=== PATIENT | male | born 1955 ===

== ENCOUNTER → 2021-08-31 09:42 | Outpatient (BNVA) | payer MEDICARE, MEDICAID, SELFPAY | PROVIDERS: Visit Provider Psychiatry & Neurology Neurology | DX: G25.1 Drug-induced tremor (principal) | CPT/HCPCS: 99212 ==

== ENCOUNTER → 2022-03-05 09:47 | Outpatient (BNVA) | payer MEDICARE, OTHER, SELFPAY | PROVIDERS: Visit Provider Psychiatry & Neurology Neurology | DX: G25.1 Drug-induced tremor (principal); G47.8 Other sleep disorders | CPT/HCPCS: 99212 ==

== ENCOUNTER 2023-03-04 09:11 | Outpatient (AMB) | payer MEDICARE, MEDICAID, SELFPAY ==
--- NOTE | 2023-03-04 09:12 | A.OFFVIS_ITS ---
Intake Vital Signs 03/04/23 09:14 Height 5 ft 10.5 in Weight 129 lb BMI 18.2 BP 128/86 Blood Pressure Location Lt brachial Position Sitting Respiration 18 Pulse 86 Pulse Source Pulse Oximeter Pulse Oximetry (%) 98 Oxygen Delivery Method Room Air Intake Visit Reasons: I YEAR FOLLOW UP - Confirmed Intake Note: Pt presents to the office for a one year follow up for tremors. Pt reports his tremors have improved significantly since his last visit. He states if he wakes up in the middle of the night shaking, he takes one of them little pills and I wake up just fine in the morning . His main concern today is that he has been losing a lot of weight recently. He alleges to have lost 50 lbs in the last 2 months. Pt reports having a heart attack on weekend. Tooling Inspector Required: No Allergies methylprednisolone [From Medrol] Allergy (Mild, Verified 03/04/23 09:14) Unknown Medication List - Last Reconciled 03/04/23 by Yessenia Schuster MD albuterol sulfate 90 mcg/actuation 2 puffs inhalation Q4H PRN aspirin 81 mg PO DAILY atorvastatin 80 mg PO BEDTIME atorvastatin 80 mg PO DAILY benztropine 1 mg PO TID clopidogrel 75 mg PO DAILY clopidogrel 300 mg PO DAILY lithium carbonate ER 450 mg PO BID metoprolol succinate ER 25 mg PO DAILY nitroglycerin 0.4 mg sublingual Q5M PRN nutritional supplement-caloric (Benecalorie) kcal PO omeprazole 40 mg PO DAILY sennosides-docusate sodium 8.6-50 mg (Senna with Docusate Sodium) 1 tab-cap PO BEDTIME sildenafil (Viagra) 25 mg PO DAILY PRN tamsulosin 0.4 mg PO DAILY HPI HPI Comments History of Present Illness Details 67y/o male comes for follow up of tremor s. He is on cogentin 1mg bid and 1-2 tabs qhs and it is helping. His tremors are stable with increase in benztropine.He had atleast 10 falls last year. It is usually in the shower when he closes his eyes. He has someone who helps with cooking and house keeping. He had a [place] last year and had 2 stents and balloon angio. He follows up with [facility] Medical History (Updated 03/04/23 @ 09:44 by Yessenia Schuster MD) Colitis Myocardial infarction Sleep arousal disorder HTN (hypertension) Weight loss Drug-induced tremor [place] adverse reaction Depression Arthritis Surgical History History of heart artery stent History of back surgery Family History Mother Myocardial infarction Father Myocardial infarction Brother Myocardial infarction Sister Myocardial infarction Social History Alcohol intake: never Patient Tobacco Use Status: Former Tobacco user Quit Date: 1997 Physical Exam Vital Signs: Last Vital Signs Pulse 86 03/04/23 09:14 Resp 18 03/04/23 09:14 BP 128/86 03/04/23 09:14 Pulse Ox 98 03/04/23 09:14 Oxygen Delivery Method Room Air 03/04/23 09:14 BMI result Body Mass Index 18.2 Const Other: no tongue tremors no perioral movements General: cooperative, healthy appearing, comfortable and no acute distress Nutritional Appearance: underweight Orientation/consciousness: patient oriented x3 Neck Neck: Yes normal visual inspection and Yes full ROM Neuro Other: Very Mild lori postural and action tremors General: patient oriented x3, gait normal, tone normal, moves all extremities, no focal motor deficits and CN's II-XI intact bilaterally Deep tendon reflexes (DTR's): Right triceps reflex intensity grade: 2+, Left triceps reflex intensity grade: 2+, Rt Biceps (C5, C6): 2+, Left biceps reflex intensity grade: 2+, Right brachioradialis reflex intensity grade: 2+, Left brachioradialis reflex intensity grade: 2+, Right patellar reflex intensity grade: 2+ and Left patellar reflex intensity grade: 2+ Assessment & Plan Assessment & Plan (1) Drug-induced tremor: Code(s): G25.1 - Drug-induced tremor (2) Sleep arousal disorder: Code(s): G47.8 - Other sleep disorders Plan Continue benztropine 1mg bid and 2 tabs qhs . F/u cardiology F/u with psychiatry Coding Level of Care Code Est Pt Level 4 (99504) Diagnoses Drug-induced tremor G25.1 Sleep arousal disorder G47.8
[2023-03-04 09:14] VITALS: BP 128/86; PULSE 86; RESP 18; O2SAT 98; BMI 18.2
== END 2023-03-04 09:53 | disposition home or self-care (01) ==
PROVIDERS: Visit Provider Psychiatry & Neurology Neurology
DX: G25.1 Drug-induced tremor (principal); G47.8 Other sleep disorders
CPT/HCPCS: 99214

== ENCOUNTER → 2023-03-04 09:11 | Outpatient (BNVA) | payer MEDICARE, MEDICAID, SELFPAY | PROVIDERS: Visit Provider Psychiatry & Neurology Neurology | DX: G25.1 Drug-induced tremor (principal); G47.8 Other sleep disorders | CPT/HCPCS: 99212 ==

== ENCOUNTER 2023-09-02 08:53 | Outpatient (AMB) | payer MEDICARE, MEDICAID, SELFPAY ==
--- NOTE | 2023-09-02 08:55 | A.OFFVIS_ITS ---
Vital Signs 09/02/23 08:56 Height 5 ft 10.5 in Weight 154 lb 2 oz BMI 21.8 BP 118/76 Blood Pressure Location Rt brachial Position Sitting Respiration 16 Pulse 70 Pulse Source Pulse Oximeter Pulse Oximetry (%) 96 Oxygen Delivery Method Room Air Intake Visit Reasons: 6 mo f/u - Confirmed Intake Note: Pt presents for a 6 month follow up for tremors. Braker Passenger Train Required: No Allergies methylprednisolone [From Medrol] Allergy (Mild, Verified 09/02/23 08:56) Unknown Medication List - Last Reconciled 09/02/23 by Yessenia Schuster MD albuterol sulfate 90 mcg/actuation 2 puffs inhalation Q4H PRN aspirin 81 mg PO DAILY atorvastatin 80 mg PO BEDTIME atorvastatin 80 mg PO DAILY benztropine 1 mg PO TID clopidogrel 75 mg PO DAILY clopidogrel 300 mg PO DAILY escitalopram oxalate 20 mg PO DAILY lithium carbonate ER 450 mg PO BID metoprolol succinate ER 25 mg PO DAILY nitroglycerin 0.4 mg sublingual Q5M PRN nutritional supplement-caloric (Benecalorie) kcal PO omeprazole 40 mg PO DAILY quetiapine 25 mg PO DAILY sacubitril-valsartan 24-26 mg (Entresto) 1 tab PO BID sennosides-docusate sodium 8.6-50 mg (Senna with Docusate Sodium) 1 tab-cap PO BEDTIME sildenafil (Viagra) 25 mg PO DAILY PRN tamsulosin 0.4 mg PO DAILY HPI Comments Details: 67y/o male comes for follow up of tremors. He is on cogentin 1mg bid and 1-2 tabs qhs and it is helping. His tremors are stable with increase in benztropine.No recent falls in the past 3 months but prior to that he had falls- but he had GI issues and was not eating. He has someone who helps with cooking and house keeping. He had a [place] last year and had 2 stents and balloon angio. He follows up with [facility] Medical History Colitis Myocardial infarction Sleep arousal disorder HTN (hypertension) Weight loss Drug-induced tremor [place] adverse reaction Depression Arthritis Surgical History History of heart artery stent History of back surgery Family History Mother Myocardial infarction Father Myocardial infarction Brother Myocardial infarction Sister Myocardial infarction Social History Alcohol intake: never Patient Tobacco Use Status: Former Tobacco user Quit Date: 1997 Physical Exam Vital Signs: Last Vital Signs Pulse 70 09/02/23 08:56 Resp 16 09/02/23 08:56 BP 118/76 09/02/23 08:56 Pulse Ox 96 09/02/23 08:56 Oxygen Delivery Method Room Air 09/02/23 08:56 BMI result Body Mass Index 21.8 Const Other: no tongue tremors no perioral movements General: cooperative, healthy appearing, comfortable and no acute distress Nutritional Appearance: underweight Orientation/consciousness: patient oriented x3 Neck Neck: Yes normal visual inspection and Yes full ROM Neuro Other: Very Mild lori postural and action tremors General: patient oriented x3, gait normal, tone normal, moves all extremities, no focal motor deficits and CN's II-XI intact bilaterally Assessment & Plan Assessment & Plan (1) Drug-induced tremor: Code(s): G25.1 - Drug-induced tremor Category: Medical (2) Sleep arousal disorder: Code(s): G47.8 - Other sleep disorders Category: Medical Plan Continue benztropine 1mg tid. F/u cardiology F/u with psychiatry Coding Level of Care Code Est Pt Level 4 (47780) Diagnoses Drug-induced tremor G25.1 Sleep arousal disorder G47.8
[2023-09-02 08:56] VITALS: BP 118/76; PULSE 70; RESP 16; O2SAT 96; BMI 21.8
== END 2023-09-02 09:18 | disposition home or self-care (01) ==
PROVIDERS: Visit Provider Psychiatry & Neurology Neurology
DX: G25.1 Drug-induced tremor (principal); G47.8 Other sleep disorders
CPT/HCPCS: 99214

== ENCOUNTER → 2023-09-02 08:53 | Outpatient (BNVA) | payer MEDICARE, MEDICAID, SELFPAY | PROVIDERS: Visit Provider Psychiatry & Neurology Neurology | DX: G25.1 Drug-induced tremor (principal); G47.8 Other sleep disorders | CPT/HCPCS: 99212 ==

== ENCOUNTER 2024-09-02 08:46 | Outpatient (AMB) | payer OTHER, MEDICARE, MEDICAID, SELFPAY ==
--- NOTE | 2024-09-02 08:48 | MHC.OFFVIS ---
Vital Signs 09/02/24 08:49 Height 5 ft 10.5 in Weight 143 lb 8 oz BMI 20.3 BP 118/70 Blood Pressure Location Rt brachial Position Sitting Pulse 60 Pulse Source Pulse Oximeter Pulse Oximetry (%) 96 Oxygen Delivery Method Room Air Intake Visit Reasons: Follopw up-LVM TO R/S Intake Note: Patient presents for follow up tremors, Allergies methylprednisolone [From Medrol] Allergy (Mild, Verified 09/02/24 08:53) Unknown Medication List - Last Reconciled 09/02/24 by Yessenia Schuster MD albuterol sulfate 90 mcg/actuation 2 puffs inhalation Q4H PRN aspirin 81 mg PO DAILY atorvastatin 80 mg PO BEDTIME atorvastatin 80 mg PO DAILY benztropine 1 mg PO TID clopidogrel 75 mg PO DAILY clopidogrel 300 mg PO DAILY escitalopram oxalate 20 mg PO DAILY lithium carbonate ER 450 mg PO BID metoprolol succinate ER 25 mg PO DAILY nitroglycerin 0.4 mg sublingual Q5M PRN nutritional supplement-caloric (Benecalorie) kcal PO omeprazole 40 mg PO DAILY quetiapine 25 mg PO DAILY sacubitril-valsartan 24-26 mg (Entresto) 1 tab PO BID sennosides-docusate sodium 8.6-50 mg (Senna with Docusate Sodium) 1 tab-cap PO BEDTIME sildenafil (Viagra) 25 mg PO DAILY PRN tamsulosin 0.4 mg PO DAILY HPI Comments Details: 68y/o male comes for follow up of tremors. He is on cogentin 1mg tid and it is helping.He forgets his middle of day dose often His tremors are stable with increase in benztropine. He tripped on a rug and had a fall 2 mths ago l He has someone who helps with cooking and house keeping. He had a [place] last year and had 2 stents and balloon angio. He follows up with [facility] Medical History Colitis Myocardial infarction Sleep arousal disorder HTN (hypertension) Weight loss Drug-induced tremor [place] adverse reaction Depression Arthritis Surgical History History of heart artery stent History of back surgery Family History Mother Myocardial infarction Father Myocardial infarction Brother Myocardial infarction Sister Myocardial infarction Social History Alcohol intake: never Patient Tobacco Use Status: Former Tobacco user Physical Exam Vital Signs: Last Vital Signs Pulse 60 09/02/24 08:49 BP 118/70 09/02/24 08:49 Pulse Ox 96 09/02/24 08:49 Oxygen Delivery Method Room Air 09/02/24 08:49 BMI result Body Mass Index 20.3 Const Other: no tongue tremors no perioral movements General: cooperative, healthy appearing, comfortable and no acute distress Nutritional Appearance: underweight Orientation/consciousness: patient oriented x3 Neck Neck: Yes normal visual inspection and Yes full ROM Neuro Other: Very Mild lori postural and action tremors General: patient oriented x3, gait normal, tone normal, moves all extremities, no focal motor deficits and CN's II-XI intact bilaterally Assessment & Plan Assessment & Plan (1) Drug-induced tremor: Code(s): G25.1 - Drug-induced tremor Category: Medical (2) Sleep arousal disorder: Code(s): G47.8 - Other sleep disorders Category: Medical Plan Continue benztropine 1mg tid. F/u cardiology F/u with psychiatry Medications: Changed From atorvastatin 80 mg PO DAILY To atorvastatin 40 mg PO DAILY Coding Level of Care Code Est Pt Level 4 (81518) Diagnoses Drug-induced tremor G25.1 Sleep arousal disorder G47.8
[2024-09-02 08:49] VITALS: BP 118/70; PULSE 60; O2SAT 96; BMI 20.3
--- OUTSIDE RECORDS SUMMARY | 2024-09-02 09:08 | XMS_ITS | Patient Health Record ---
Author Organization [facility] Address [address] [place], [place] [id number] Care Team Providers Care Staff Anesthesiologist Name Role Phone Natacha Harris Primary Care Provider Unavail able Tyrese Cerna Unavailable [phone] Zenia ARTEAGA, Ifeoma Unavailable Unavailable Maddie Eli Unavailable [phone] Abelardo Pandey Unavailable [phone] Allergies Allergen (clinical drug ingredient) Drug/Non Drug Allergy documented on EMR Reaction Allergy Type Onset Date Status methylprednisolone Medrol (Ahmet) Unknown Drug Allergy Active Reason For Referral No Information Medications Medication SIG (Take, Route, Frequency, Duration) Notes Start Date End Date Status Trelegy Ellipta 100-62.5-25 MCG/ACT 1 puff Inhalation Once a day for 30 days Active [place] Carbonate ER 450 MG TAKE 1 TABLE T BY MOUTH EVERYDAY AT BEDTIME Oral for 90 daytime Active Omeprazole 40 MG 1 capsule 30 minutes before morning meal Orally Once a day for 30 day(s) Active Albuterol Sulfate HFA 108 (90 Base) MCG/ACT INHALE 1 PUFF INTO THE LUNGS EVERY 4 HOURS NEEDED for 30 Active Clopidogrel Bisulfate 75 MG 2 TABLET BY MOUTH DAILY,X90 DAYS Oral 2X A DAY for 90 days Active Aspir-81 Active Nitroglycerin 0.4 MG as directed Sublingual PRN Active Escitalopram Oxalate 5 MG 1 tablet Orall y Once a day for 30 day(s) prn Active QUEtiapine Fumarate 25 MG 1 tablet at be dtime Orally Once a day for 30 day(s) Active Benztropine Mesylate 0.5 MG 1 tablet at bedtime Orally 3 times daily for 30 days Active Atorvastatin Calcium 40 MG 1 tablet Oral ly Once a day Active Tamsulosin HCl 0.4 MG 1 capsule Orally O nce a day for 30 day(s) Active Social History Tobacco Use: Social History Observation Description Date Details (start date - stop date) Former Smoker NA - NA Tobacco Question Answer Notes Are you a: former smoker Problems Problem Type SNOMED Code ICD Code Onset Dates Problem Status W/U Status Risk Notes Problem Insomnia (084316019) Insomnia (G47.00) Active confirmed Problem Multiple nodules of lung (058855147) Lung nodules (R91.8) Active confirmed Problem History of tobacco use (2214483799362) History of tobacco abuse (Z87.891) Active confirmed Problem COPD - Chronic obstructive pulmonary disease (75747118) COPD (chronic obstructive pulmonary disease) (J44.9) Active confirmed Problem Coronary artery disease (08483284) CAD (coronary artery disease) (I25.10) Active confirmed Problem Cannabis dependence (94026362) Marijuana smoker (F12.20) Active confirmed Problem Emphysema (65022161) Emphysema (J43.9) Active confirmed Vital Signs Heart Rate 62 /min 12/20/2023 Respiratory Rate 16 /min 12/20/2023 Blood pressure diastolic 78 mm Hg 12/20/2023 Height 72 in 12/20/2023 Blood pressure systolic 108 mm Hg 12/20/2023 Weight 148 lbs 12/20/2023 BMI 20.07 kg/m2 12/20/2023 Encounters Encounter Location Date Provider Diagnosis [facility] - [address] [place] [address] 09/18/2023 Maddie Sreedhar Emphysema J43.9 ; Insomnia G47.00 ; History of tobacco abuse Z87.891 ; Marijuana smoker F12.20 ; Lung nodules R91.8 and CAD (coronary artery disease) I25.10 [facility] - [address] [place] [address] 12/20/2023 Tyrese Nehemiah Emphysema J43.9 ; Insomnia G47.00 ; History of tobacco abuse Z87.891 ; Marijuana smoker F12.20 ; Lung nodules R91.8 and CAD (coronary artery disease) I25.10 [facility] - [address] [place], [place] [phone] 10/10/2023 Maddie Onofreuber Lung nodules R91.8 [facility] - [facility] [address] [facility] [address] [place], [place] [phone] 10/29/2023 Maddie Eli Assessments Encounter Date Diagnosis (ICD Code) Assessment Notes Treatment Notes Treatment Clinical Notes Section Notes 09/18/2023 Emphysema (ICD-10 - J43.9) Continue inhaled regimen. He will notify if symptoms worsen. 10/10/2023 Lung nodules (ICD-10 - R91.8) 12/20/2023 Emphysema (ICD-10 - J43.9) Continue inhaled regimen. He will notify if symptoms worsen. 12/20/2023 Insomnia (ICD-10 - G47.00) He uses marijuana with improvement 09/18/2023 Insomnia (ICD-10 - G47.00) He uses marijuana with improvement 09/18/2023 History of tobacco abuse (ICD-10 - Z87.891) Encoruaged to continue to abstain 12/20/2023 History of tobacco abuse (ICD-10 - Z87.891) Encoruaged to continue to abstain 09/18/2023 Marijuana smoker (ICD-10 - F12.20) 12/20/2023 Marijuana smoker (ICD-10 - F12.20) 09/18/2023 Lung nodules (ICD-10 - R91.8) Follow-up CT in 1 year for small nodules- August 2023. He was supposed to have this done prior to today's visit but he declined to schedule it, he's not sure why. We discussed the importance of annual LDCTs, he is agreeable 12/20/2023 Lung nodules (ICD-10 - R91.8) Follow-up CT in 1 year October 2024 12/20/2023 CAD (coronary artery disease) (ICD-10 - I25.10) Followed by puddler helper in [place], [place] 09/18/2023 CAD (coronary artery disease) (ICD-10 - I25.10) Followed by puddler helper in [place], [place] 12/20/2023 Other PCP is at [facility]. Plan Of Treatment Pending Test Test Name Order Date Chest X-Ray PA and Lateral 09/14/2021 Future Test Test Name Order Date PFT: Complete ([place] Pre/Post, Lung Volu mes, BB, DLCO) 02/16/2022 CT LUNG SCREENING FOLLOW UP 05/11/2022 PFT Complete with Methacholi ne Spirometry (Pre/Post), Lung Volumes, Body Box, DLCO 09/28/2022 PFT Complete with Methacholi ne Spirometry (Pre/Post), Lung Volumes, Body Box, DLCO 11/02/2022 PFT Complete with Methacholi ne Spirometry (Pre/Post), Lung Volumes, Body Box, DLCO 01/02/2023 CT LUNG SCREENING FOLLOW UP 08/27/2023 CT LUNG SCREENING FOLLOW UP 09/18/2023 CT Chest - Without Contrast 10/16/2023 Insurance Providers Payer Name Payer Address Payer Phone Subscriber Number Group Number Insured Name Patient Relationship to Insured Coverage Start Date Coverage End Date Medicaid [address] [place] [phone] [id number] Kevin Marrero Self - patient is the insured Medical (General) History Medical History History ICD Code HLD GERD Vides's Emphysema Lung nodules AMI Stroke Surgical History Surgery Date(Month/Year) Back surgery Dental surgery Hospitalization History Reason Date(Month/Year) above
--- OUTSIDE RECORDS SUMMARY | 2024-09-02 09:08 | XMS_ITS | Encounter Summary ---
Author Organization [employer] Address [address] [place] [address] Care Team Providers Care Health Service Worker Name Role Phone Unavailable Primary Care Provider Unavailabl e Encounter Details Date Type Department Care Team (Late st Contact Info) Description 03/21/2022 Abstract [facility] [address] [place], [place] [phone] Kevin Austin DDS [address], [place] [phone] Social History Tobacco Use Types Packs/Day Years Used Date Smoking Tobacco: Never Assessed Sex and Gender Information Value Date Recorded Sex Assigned at Male 02/19/2022 10:27 AM EDT Legal Sex Male 10:27 AM EDT Gender Identity Male 02/19/2022 10:27 AM EDT Sexual Orientation Straight 02/19/2022 10 :27 AM EDT documented as of this encounter Plan of Treatment Not on file documented as of this encounter Visit Diagnoses Not on filedocumented in this encounter
--- OUTSIDE RECORDS SUMMARY | 2024-09-02 09:08 | XMS_ITS | Clinical Summary ---
Author Organization [employer] Address [address] [place] [address] Care Team Providers Care Dispensing Lead Name Role Phone Unavailable Primary Care Provider Unavailabl e Allergies Active Allergy Reactions Criticality Noted Date Comments Methylprednisolone 04/12/2022 Medications No known medications Social History Tobacco Use Types Packs/Day Years Used Date Smoking Tobacco: Never Passive Smoke Exposure: Never Smokeless Tobacco: Never Tobacco Cessation:Counseling Given: No Alcohol Use Standard Drinks/Week Comments Never 0 (1 standard drink = 0.6 oz pur e alcohol) Sex and Gender Information Value Date Recorded Sex Assigned at Male 02/19/2022 10:27 AM EDT Legal Sex Male 10:27 AM EDT Gender Identity Male 02/19/2022 10:27 AM EDT Sexual Orientation Straight 02/19/2022 10 :27 AM EDT Last Filed Vital Signs Vital Sign Reading Time Taken Comments Blood Pressure 140/82 05/02/2022 7:54 AM EST Pulse 69 03/29/2022 1:06 PM EST Temperature - - Respiratory Rate - - Oxygen Saturation - - Inhaled Oxygen Concentration - - Weight - - Height - - Body Mass Index - - Plan of Treatment Health Maintenance Due Date Last Done Comments CT Colonography 1954 Colonoscopy 1954 Colorectal Cancer Screening 1954 Dental Oral Exam 1954 Dental Prophylaxis 1954 Dental X-Ray: Bitewings 1954 Dental X-Ray: Full Mouth 1954 Depression Screening 1954 FIT DNA/Cologuard 1954 FIT 1954 FOBT 1954 Lipid Panel 1954 SDOH Screening 1954 Sigmoidoscopy 1954 Alcohol/Substance Use Screening 1966 Hepatitis C Screening 1972 Zoster Vaccines (1 of 2) 2004 RSV Patients and Patients Aged 60 years or older (1 - Risk 60-74 years 1-dose series) 2014 DTaP/Tdap/Td Vaccines (1 - Tdap) 10/15/2017 10/14/2017 Tobacco Screening 05/02/2023 05/02/2022 COVID-19 Vaccine (3 - 2023-2 5 season) 2023 08/03/2020, 07/13/2020 Influenza Vaccine (#1) 2023 , 01/16/2021, 05/09/2018 Pneumococcal Vaccine: 50+ Years (3 of 3 - PCV20 or PCV21) 05/11/2026 05/11/2021, 05/09/2018 HIB Vaccines Aged Out No longer eligi ble based on patient's age to complete this topic HPV Vaccines Aged Out No longer eligi ble based on patient's age to complete this topic Hepatitis A Vaccines Aged Out No long er eligible based on patient's age to complete this topic Hepatitis B Vaccines Aged Out No long er eligible based on patient's age to complete this topic IPV Vaccines Aged Out No longer eligi ble based on patient's age to complete this topic Meningococcal Vaccine Aged Out No bernardino osiris eligible based on patient's age to complete this topic RSV under 20 months Aged Out No longe r eligible based on patient's age to complete this topic Rotavirus Vaccines Aged Out No longer eligible based on patient's age to complete this topic Insurance DENTAL - HSN FULL (MEDICAID)
--- OUTSIDE RECORDS SUMMARY | 2024-09-02 09:08 | XMS_ITS ---
Author Organization [facility] Address [address] [place], [place] [phone] Care Team Providers Care Secretarial Teacher Name Role Phone Natacha Harris Primary Care Provider Unavail able Tyrese Cerna Unavailable [phone] Zenia PLUG GROWER, Ifeoma Unavailable Unavailable Maddie Eli Unavailable [phone] appointment - voicemail left Encounters Encounter Location Date Provider Diagnosis [facility] [address] [place], [place] [phone] 10/29/2023 Maddie Eli Plan Of Treatment No Information Progress Notes * JULIA KevinDOB:1955 ([age] yo M)Acc No.[id number]:10/29/2023 Patient:?Kevin MARRERO :1955???Age:67 Y???Sex:Male Address: [place], [address] * true * Date:? Generated for Printi leisa/Ryan/eTransmitting on:?09/02/2024 09:08 AM EDT
--- OUTSIDE RECORDS SUMMARY | 2024-09-02 09:08 | XMS_ITS ---
Author Organization [facility] Address [address] [place], [place] [address] Care Team Providers Care Pig Casting Machine Operator Name Role Phone Natacha Harris Primary Care Provider Unavail able Tyrese Cerna Unavailable [phone] Zenia ARTEAGA, Ifeoma Unavailable Unavailable Abelardo Pandey Unavailable [phone] REASON FOR VISIT 6 MONTH FOLLOW UP Emphysema Encounters Encounter Location Date Provider Diagnosis [facility] [place] [address] [place] [address] 06/19/2024 Abelardo Pandey Plan Of Treatment No Information Progress Notes * Kevin MARRERODOB:1955 ([age] yo M)Acc No.[id number]:06/19/2024 Patient:?Kevin MARRERO Provider:?Abelardo Pandey NP :1955???Age:68 Y???Sex:Male Jeremy e:06/19/2024 Address: [place] Pcp:Natacha Harris Subjective: * Chief Complaints: * ???1. 6 MONTH FOLLOW UP Emph ysema. * Medical History:? Objective: * Vitals:? Assessment: Plan: * Treatment: * Images: * Electronic signature of [place] Pandey on 09/02/2024 at 09:08 AM EDT Sign off status: Pending * Provider:?Abelardo Pandey NP Date:?2024 Generated for Printi ng/Faxing/eTransmitting on:?09/02/2024 09:08 AM EDT
--- OUTSIDE RECORDS SUMMARY | 2024-09-02 09:08 | XMS_ITS | Clinical Summary ---
Author Organization [facility] Address [address] [place] [address] Care Team Providers Care Finisher Hot Strip Name Role Phone Amira Nash AUDIO VISUAL FACILITIES ENGINEER Primary Care Provider Social History Tobacco Use Types Packs/Day Years Used Date Smoking Tobacco: Never Assessed Sex and Gender Information Value Date Recorded Sex Assigned at Not on file Gender Identity Not on file Sexual Orientation Not on file Job Start Date Occupation Industry Not on file Not on file Not on file Plan of Treatment Health Maintenance Due Date Last Done Comments Hepatitis C Screening 1955 Depression Screening 1966 Preventative Health Evaluation 1972 Colon Cancer Screening (Colonoscopy) 12/19/1999 Shingrix-Zoster Vaccine (1 of 2) 2004 Fall Risk Assessment 12/19/2019 COVID-19 Vaccine ( season) 2023 05/28/2021, 08/03/2020, 07/13/2020 Influenza Vaccine (#1) 2023 2, 01/16/2021, 01/15/2020, Additional history exists Pneumococcal Vaccine (3 of 3 - PPSV23 or PCV20) 05/11/2026 05/11/2021, 05/09/2018 DTap / Tdap / Td (3 - Tdap) 10/15/2027 10/14/2017, 0 11/07/2006 RSV Adult > 60+ Yrs or (1 - 1-dose 75+ series) 2029 Hepatitis B Vaccines Aged Out No long er eligible based on patient's age to complete this topic RSV Ped < 20 months Aged Out No longe r eligible based on patient's age to complete this topic Care Teams Finisher [employer] Relationship Specialty Start Date End Date Amira Nash NP [address] [address] PCP - General Nurse Practitioner 03/20/22
--- OUTSIDE RECORDS SUMMARY | 2024-09-02 09:08 | XMS_ITS ---
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 Role Phone Natacha Harris Primary Care Provider Unavail able Tyrese Cerna Unavailable [phone] Ifeoma Knutson NP Unavailable Unavailable Allergies Allergen (clinical drug ingredient) Drug/Non Drug Allergy documented on EMR Reaction Allergy Type Onset Date Status methylprednisolone Medrol (Ahmet) Unknown Drug Allergy Active REASON FOR VISIT Follow Yl-Vstltsdqu-MY In Chart Medications Medication SIG (Take, Route, Frequency, Duration) Notes Start Date End Date Status Albuterol Sulfate HFA 108 (90 Base) MCG/ACT 1 puff as needed Inhalation every 4 hrs for 30 days Active [place] Carbonate ER 450 MG TAKE 1 TABLE T BY MOUTH EVERYDAY AT BEDTIME Oral for 90 daytime Active Clopidogrel Bisulfate 75 MG 2 TABLET BY MOUTH DAILY,X90 DAYS Oral 2X A DAY for 90 days Active Aspir-81 Active Nitroglycerin 0.4 MG as directed Sublingual PRN Active Trelegy Ellipta 100-62.5-25 MCG/ACT 1 puff Inhalation Once a day for 30 days Active Omeprazole 40 MG 1 capsule 30 minutes before morning meal Orally Once a day for 30 day(s) Active Benztropine Mesylate 0.5 MG 1 tablet at bedtime Orally 3 times daily for 30 days Active Atorvastatin Calcium 40 MG 1 tablet Oral ly Once a day Active Tamsulosin HCl 0.4 MG 1 capsule Orally O nce a day for 30 day(s) Active Escitalopram Oxalate 5 MG 1 tablet Orall y Once a day for 30 day(s) prn Active QUEtiapine Fumarate 25 MG 1 tablet at be dtime Orally Once a day for 30 day(s) Active Vital Signs Weight 148 lbs 12/20/2023 Blood pressure systolic 108 mm Hg 12/20/19 24 Blood pressure diastolic 78 mm Hg 024 Heart Rate 62 /min 12/20/2023 Respiratory Rate 16 /min 12/20/2023 Height 72 in 12/20/2023 BMI 20.07 kg/m2 12/20/2023 Encounters Encounter Location Date Provider Diagnosis [facility] [address] [place] [address] 12/20/2023 Tyrese Cerna Emphysema J43.9 ; Insomnia G47.00 ; History of tobacco abuse Z87.891 ; Marijuana smoker F12.20 ; Lung nodules R91.8 and CAD (coronary artery disease) I25.10 Assessments Encounter Date Diagnosis (ICD Code) Assessment Notes Treatment Notes Treatment Clinical Notes Section Notes 12/20/2023 Emphysema (ICD-10 - J43.9) Continue inhaled regimen. He will notify if symptoms worsen. 12/20/2023 Insomnia (ICD-10 - G47.00) He uses marijuana with improvement 12/20/2023 History of tobacco abuse (ICD-10 - Z87.891) Encoruaged to continue to abstain 12/20/2023 Marijuana smoker (ICD-10 - F12.20) 12/20/2023 Lung nodules (ICD-10 - R91.8) Follow-up CT in 1 year October 2024 12/20/2023 CAD (coronary artery disease) (ICD-10 - I25.10) Followed by commercial installer in [place], [place] 12/20/2023 Other PCP is at [facility]. Plan Of Treatment Medication Medication Name Sig Start Date Stop Date Notes Albuterol Sulfate HFA 108 (9 0 Base) MCG/ACT 1 puff as needed Inhalation every 4 hrs for 30 days Trelegy Ellipta 100-62.5-25 MCG/ACT 1 puff Inhalation Once a day for 30 days Treatment Notes Assessment Notes Emphysema Continue inhaled reg imen. He will notify if symptoms worsen. Insomnia He uses marijuana wi th improvement History of tobacco abuse Encoruaged to c ontinue to abstain Lung nodules Follow-up CT in 1 ye ar October 2024 CAD (coronary artery disease) Followed b y commercial installer in [place], [place] Other PCP is at [facility] manjeet GALARZA. Next Appt Details Follow Up: 6 Months, Reason: Progress Notes * Kevin MARRERODOB:1955 ([age] yo M)Acc No.[id number]:12/20/2023 Patient:?Kevin MARRERO Provider:?Tyrese Cerna MD :1955???Age:68 Y???Sex:Male Jeremy e:12/20/2023 Address:[address] [place], [place] [id number] Pcp:Natacha Harris Subjective: * Chief Complaints: * ???Follow Mo-Bpsghxqgx-FZ In Chart * HPI: ???COPD:?68 year old male presents with c/o COPD?diagnosed symptomatically, CT showed moderate emphysema.? He finally went for a PFT since last visit reveal severe COPD. Full results listed below. Here today for a follow up. ?He was Breztri previously and had been changed to Trelegy.? He has been consistent on this. He feels significant improvement of his prior dyspnea. ?He rarely needs the albuterol.?He is dyspneas with walking - noticable when walking 5 blocks.? 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 * ROS:?Follow up ROS 2:?General?No fever, chills, sweats, No excessive fatigue, Appetite good, weight stable.?EENT?No change in vision, No ocular discharge or pruritis, No change in hearing, Sense of smell/taste intact, No sore throat.?Cardiac?No chest pain, pressure or tightness, No extremity edema, No lightheadedness, No orthopnea or PND.?Respiratory?Per HPI.?GI?No abdominal pain, nausea, vomiting or diarrhea. No sx of ARSH.?Musculoskeletal?No acute arthralgias or myalgias.?Dermatologic?No rash, eczema or urticaria.?Neurologic?No headache or dizziness.?Psychiatric?No complaint of depression or anxiety.?Hematology/Lymph?No swollen glands, No easy bruising.?Actively smoking?No.??Negative.? * Medical History:? * Surgical History:? * Hospitalization/Major Diagno stic Procedure:? * Medications:?TakingNitroglyc aranza 0.4 MG Tablet Sublingual as directed Sublingual , Notes to Pharmacist: PRNAspir-81 QUEtiapine Fumarate 25 MG Tablet 1 tablet at bedtime Orally Once a day Escitalopram Oxalate 5 MG Tablet 1 tablet Orally Once a day , Notes to Pharmacist: prnAtorvastatin Calcium 40 MG Tablet 1 tablet Orally Once a day Benztropine Mesylate 0.5 MG Tablet 1 tablet at bedtime Orally 3 times daily Tamsulosin HCl 0.4 MG Capsule 1 capsule Orally Once a day Omeprazole 40 MG Capsule Delayed Release 1 capsule 30 minutes before morning meal Orally Once a day [place] Carbonate ER 450 MG Tablet Extended Release TAKE 1 TABLET BY MOUTH EVERYDAY AT BEDTIME Oral , Notes to Pharmacist: daytimeClopidogrel Bisulfate 75 MG Tablet 2 TABLET BY MOUTH DAILY,X90 DAYS Oral 2X A DAY Trelegy Ellipta 100-62.5-25 MCG/ACT Aerosol Powder Breath Activated 1 puff Inhalation Once a day Albuterol Sulfate HFA 108 (90 Base) MCG/ACT Aerosol Solution 1 puff as needed Inhalation every 4 hrs Medication List reviewed and reconciled with the patientTaking Nitroglycerin 0.4 MG Tablet Sublingual as directed Sublingual , Notes to Pharmacist: PRNTaking Aspir- 81 Taking QUEtiapine Fumarate 25 MG Tablet 1 tablet at bedtime Orally Once a day Taking Escitalopram Oxalate 5 MG Tablet 1 tablet Orally Once a day , Notes to Pharmacist: prnTaking Atorvastatin Calcium 40 MG Tablet 1 tablet Orally Once a day Taking Benztropine Mesylate 0.5 MG Tablet 1 tablet at bedtime Orally 3 times daily Taking Tamsulosin HCl 0.4 MG Capsule 1 capsule Orally Once a day Taking Omeprazole 40 MG Capsule Delayed Release 1 capsule 30 minutes before morning meal Orally Once a day Taking [place] Carbonate ER 450 MG Tablet Extended Release TAKE 1 TABLET BY MOUTH EVERYDAY AT BEDTIME Oral , Notes to Pharmacist: daytimeTaking Clopidogrel Bisulfate 75 MG Tablet 2 TABLET BY MOUTH DAILY,X90 DAYS Oral 2X A DAY Taking Trelegy Ellipta 100-62.5-25 MCG/ACT Aerosol Powder Breath Activated 1 puff Inhalation Once a day Taking Albuterol Sulfate HFA 108 (90 Base) MCG/ACT Aerosol Solution 1 puff as needed Inhalation every 4 hrs Medication List reviewed and reconciled with the patient * Allergies:?Medrol (Ahmet)no[Curtis rojas Verified] Objective: * Vitals:?Wt: 148, BP:108/78, HR: 62, RR: 16, O2 sat: 95%RA, Ht: 72, BMI:20.07. * Examination: ???General Physical Exam: ?General Appearance:?in no acute distress.?Eyes?Conjunctiva not injected, Sclera not icteric, EOMI, PERRL.?Oral cavity?No significant abnormalities appreciated.?The hypopharynx?Normal in appearance; no erythema or exudate.?Neck?Supple, JVP is normal, no masses, thyroid is normal.?Chest?Normal shape and expansion with respiration.?Lungs?Respiratory rate is normal, Breath sounds are clear bilaterally.?Heart:?Normal rate, regular rhythm, Normal S1, normal S2, no murmurs, rub, gallop.?Extremities?No digital clubbing, acrocyanosis or peripheral edema.?Lymph?No cervical, submandibular or supraclavicular adenopathy.?Skin:?Warm and dry, No rash on partial skin exam.?Neuro:?A & O x 3, Grossly nonfocal motor and sensory exam.?Data?All data and notes provided were personally reviewed.?For today's visit I spent 40 minutes for preparation, reviewing of the record and face to face contact. ???Data: ?Radiographs?Chest CT completed 08/29/2022 showed stable moderate upper lobe predominant centrilobular and paraseptal pulmonary emphysema.? Several stable milimetric pulmonary nodules.? No new or growing nodules. Minimal scarring at the bases.? Severe coronary artery calcifications.?Pulmonary Function Tests?PFT completed 05/02/2023 showed FVC 5.70L (139% pred), FEV1 3.83L (123% pred), FEV1/FVC67%, TLC 120%, DLCO 30%.? Assessment: * Assessment: 1.?Emphysema - J43.9 (Primar y)?2.?Insomnia - G47.00?3.?History of tobacco abuse - Z87.891?4.?Marijuana smoker - F12.20?5.?Lung nodules - R91.8?6.?CAD (coronary artery disease) - I25.10? Plan: * Treatment: 2.?Insomnia? Notes: He uses marijuana with improvement?? 3.?History of tobacco abuse? Notes: Encoruaged to continue to abstain ?? 4.?Lung nodules? Notes: Follow-up CT in 1 year October 2024?? 5.?CAD (coronary artery dise ase)? Notes: Followed by commercial installer in [place], [place]?? 6.?Others? Notes: PCP is at [facility]. ?? * Procedure Codes:? * Follow Up:?6 Months * Images: * Sign off status: Completed true * Provider:?Tyrese Cerna MD Date:?12/20/2023 Generated for [place] fuente/Ryan/eTransmitting on:?09/02/2024 09:08 AM EDT History and Physical Notes * HPI (History of Present Illness) Category Sub-Category Detail Notes Category Not es COPD COPD diagnosed sympto matically, CT showed moderate emphysema. He finally went for a PFT since last visit reveal severe COPD. Full results listed below. Here today for a follow up. He was Breztri previously and had been changed to Trelegy. He has been consistent on this. He feels significant improvement of his prior dyspnea. He rarely needs the albuterol. He is dyspneas with walking - noticable when walking 5 blocks. Neighborhood is flat. His commercial installer has him on clopidogrel and is also on carvedilol. He has intermittent coughing or wheezing. 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 Neck Supple, JVP is chidi l, no masses, thyroid is normal Heart: Normal rate, regular rhythm, Normal S1, normal S2, no murmurs, rub, gallop Lungs Respiratory rate is normal, Breath sounds are clear bilaterally General Appearance: in no acute distress Oral cavity No significant abnor malities appreciated Chest Normal shape and exp ansion with respiration Extremities No digital clubbing, acrocyanosis or peripheral edema The hypopharynx Normal in appearance ; no erythema or exudate Skin: Warm and dry, No loan h on partial skin exam Neuro: A & O x 3, Grossly n onfocal motor and sensory exam Lymph No cervical, submand ibular or supraclavicular adenopathy Data All data and notes p rovided were personally reviewed Data Radiographs Chest CT complet ed 08/29/2022 showed stable moderate upper lobe predominant centrilobular and paraseptal pulmonary emphysema. Several stable milimetric pulmonary nodules. No new or growing nodules. Minimal scarring at the bases. Severe coronary artery calcifications Pulmonary Function Tests PFT completed showed FVC 5.70L (139% pred), FEV1 3.83L (123% pred), FEV1/FVC67%, TLC 120%, DLCO 30%
== END 2024-09-02 09:08 | disposition home or self-care (01) ==
LOC: HO.HSMS 08:47
PROVIDERS: Visit Provider Psychiatry & Neurology Neurology
DX: G25.1 Drug-induced tremor (principal); G47.8 Other sleep disorders
CPT/HCPCS: 99214

== ENCOUNTER → 2024-09-02 08:46 | Outpatient (BNVA) | payer OTHER, SELFPAY | PROVIDERS: Visit Provider Psychiatry & Neurology Neurology | DX: G25.1 Drug-induced tremor (principal); G47.8 Other sleep disorders ==